=== PATIENT | female | born 1985 | race Caucasian/White ===

== ENCOUNTER 2016-06-05 09:36 | Emergency (ER) | payer BC ==
[~2016-06-05] VITALS: Ht 170.2 cm; Wt 132.7 kg
[2016-06-05 10:32] LABS: MCH 30.4 PG (29.0-34.0); MCHC 34.1 G/DL (30.0-36.0); MCV 88.9 FL (83-99); PLATELET COUNT 231 K/uL (156-360); RBC DIS.WIDTH-CV 12.1 % (11.8-14.6); RBC DIS.WIDTH-SD 38.8 % (39-53); RED BLOOD COUNT 4.61 M/uL (3.80-5.20); WHITE BLOOD COUNT 6.3 K/uL (4.1-10.2)
[2016-06-05 10:41] LABS: CHLORIDE 105 mEq/L (99-109); POTASSIUM 3.4 mEq/L (3.7-5.4); SODIUM 138 mEq/L (136-147)
[2016-06-05 10:43] LABS: GLUCOSE 111 mg/dL (70-99)
[2016-06-05 10:44] LABS: ANION GAP 11 MEQ/L (2-14)
[2016-06-05 10:45] LABS: TOTAL BILIRUBIN 0.6 mg/dL (0.0-1.0)
[2016-06-05 10:46] LABS: ALKALINE PHOSPHATASE 65 IU/L (3-129)
[2016-06-05 10:47] LABS: GFR ESTIMATE (CALCULATED) > 59 mL/min/
[2016-06-05 10:48] LABS: UREA NITROGEN (BUN) 11 mg/dL (9-23)
[2016-06-05 10:50] LABS: LIPASE 36 U/L (1.0-51.0)
[2016-06-05 10:59] LABS: QUANTITATIVE HCG < 4.0 MIU/ML
[2016-06-05 12:11] LABS: ADD MIUA? YES; BILIRUBIN NEGATIVE; BLOOD TRACE; COLOR DK YELLOW ((YELLOW)); GLUCOSE (STRIP) NEGATIVE; KETONES NEGATIVE; LEUKOCYTES NEGATIVE; NITRITE NEGATIVE; PROTEIN (STRIP) TRACE; SPECIFIC GRAVITY 1.027 (1.000-1.030)
[2016-06-05 12:29] LABS: BACTERIA NONE SEEN; CASTS NONE SEEN /LPF; CRYSTALS NONE SEEN; EPITHELIAL CELLS 1+; MUCUS NONE SEEN; PATHOLOGICAL CAST NONE SEEN; RED BLOOD CELLS 0-5 /HPF (0-5); SMALL ROUND CELL NONE SEEN; UCUL ADDED? NO; WHITE BLOOD CELLS 0-5 /HPF (0-5); YEAST-LIKE CELL NONE SEEN
[2016-06-05] MEDS ORDERED: ZOFRAN ODT8 MG PO (13:43)
[2016-06-05] MEDS ORDERED: BENTYL10 MG PO (13:43)
[2016-06-05] MEDS ORDERED: PROMETHAZINE HC25 M1 PO (14:00)
[2016-06-05 14:12] VITALS: BP 125/76
== END 2016-06-05 14:02 | disposition home or self-care (01) ==
LOC: EME 09:36
DX: R10.11 Right upper quadrant pain (principal); R11.2 Nausea with vomiting, unspecified; Z88.1 Allergy status to other antibiotic agents
CPT/HCPCS: 76705; 80053; 81003; 83690; 84702; 85027; 99281; 99284